=== PATIENT | female | born 1960 | race Caucasian/White ===

== ENCOUNTER 2023-10-06 14:52 | Outpatient (AMB) | payer OTHER, SELFPAY ==
--- NOTE | 2023-10-06 14:54 | A.OFFVIS_ITS ---
Intake Vital Signs 3 10/06/23 15:03 Height 5 ft 0.5 in Weight 185 lb BMI 35.5 BP 130/73 Blood Pressure Location Rt brachial Position Sitting Pulse 81 Pulse Source Pulse Oximeter Pulse Oximetry (%) 100 Oxygen Delivery Method Room Air Intake Visit Reasons: EVALUATION FOR HIP INJECTION Intake Note: Pain today 11/12 Medicaid Plan Compliance Director Required: No Accompanied by: Self / Same As Patient Allergies acetaminophen [From Percocet] Allergy (Unknown, Verified 10/06/23 15:03) Nausea and Vomiting erythromycin base Allergy (Unknown, Verified 10/06/23 15:03) Nausea and Vomiting oxycodone [From Percocet] Allergy (Unknown, Verified 10/06/23 15:03) Nausea and Vomiting Medication List - Last Reconciled 10/06/23 by CELENA Costello calcium carbonate 600 mg PO DAILY celecoxib (Celebrex) 200 mg PO BID losartan 25 mg PO DAILY omega 2-yqc-qte-fish oil 1,000 mg (120 mg-180 mg) (Fish Oil) 1 cap PO DAILY HPI EVALUATION FOR HIP INJECTION 2 HPI0 Details Patient is a pleasant 63 years old presents today for discussion of left intra-articular steroid hip injection. She was referred to our office by [facility] after failing conservative treatment. Denies any recent or past trauma, injury or falls. Patient reports chronic low back pain and worsening left hip pain due to arthritis over the past few years. 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 Patient has completed 8 weeks physical therapy course last year and recently restarted again with minimal improvement so far. Patient reports it has been getting more difficult for her to get out of car, bed, or shower when she has to externally rotate her left hip. Denies previous hip or spine injections or surgery. Left hip pain is rated at 4-5/10 at rest and 7-8/10 with walking/weight bearing and worse lateral in a day and night. Lower back pain is rated at 4/10. Reports she has to manually lift her left thigh at times due to pain. Denies any fever, abdominal pain, unintentional weight loss, foot drop, weakness, bladder or bowel dysfunction, or saddle anesthesia. Location Left hip and groin, minimal low back pain Duration Chronic pain, worsening for >2 years Characteristics of symptom or complaint Aching, dull, sore, heavy, sharp, pinching, hurting Aggravating or associated factors Movements, ROM, walking, weight bearing, prolonged standing Relieving factors Heat therapy, Tylenol, Celebrex-minimal; also tried Meloxicam Treatment PT- recently restarted, previous PT in 2022 for 8 weeks [facility] Medical History (Updated 10/06/23 @ 18:36 by CELENA Costello) Vitamin D deficiency Restless leg syndrome Multinodular goiter HTN (hypertension) Polyarthralgia Chronic low back pain Impingement syndrome, shoulder, left NSAID long-term use Lumbar spondylosis Chronic left hip pain Osteoarthritis of left hip Surgical History (Updated 10/06/23 @ 18:36 by CELENA Costello) History of colonoscopy History of cholecystectomy History of carpal tunnel release of both wrists Social History (Updated 10/06/23 @ 15:05 by Alexandria Belcher) Alcohol intake: current Alcohol intake frequency: holidays/special occasions only Patient Tobacco Use Status: Never used Tobacco Review of Systems Const All systems reviewed & are unremarkable except as noted in HPI and below Physical Exam Vital Signs: Last Vital Signs Pulse 81 10/06/23 15:03 BP 130/73 10/06/23 15:03 Pulse Ox 100 10/06/23 15:03 Oxygen Delivery Method Room Air 10/06/23 15:03 BMI result Body Mass Index 35.5 General: Appears afebrile. Alert and oriented. Mood and affect appropriate. Follows and participates in conversation appropriately. Respiratory effort is unlabored. No cough. Able to transition from sit to stand unassisted. Ambulates with bilaterally normal heel strike and toe off. Back/Spine/Pelvis Other: Lumbar flexion and extension reproduce mild pain. Antalgic gait with limping favoring right side. Can flex forward to 70-75 degrees and extend to 5-10 degrees before experiencing lumbar pain. Demonstrates 5/5 right and 4/5 left due to pain strength of quadriceps bilaterally as well as flexion/dorsiflexion of bilateral feet against resistance. 2+ pedal pulses bilaterally. Facet loading test positive bilaterally. Sima sign positive bilaterally, left>right. Pelvic compression and Stinchfield tests are negative bilaterally. Limited Anatoliy's test reproduces left groin and lateral hip pain, minimal low back pain. Moderate groin pain with I/E left hip rotations, worse with external rotation. Mild TTP to left GTB. Cervical Spine: cervical ROM normal, cervical muscular tenderness and No Cervical spine tenderness Thoracic/Lumbar Spine: thoracic and lumbar spine normal to inspection, No Thoracic/lumbar spine scar(s), Lasegue's sign negative, straight leg raise negative bilaterally, pain with thoraco-lumbar ROM, thoraco-lumbar ROM limited, No thoracic spinal tenderness and lumbar spinal tenderness at L4 and at L5 Pelvis: no buttock tenderness Sacroiliac joints: on the right nontender and on the left tender to palpation Extrem General: Yes capillary refill normal, Yes no clubbing, cyanosis or edema and Yes no calf tenderness Left lower extremity: hip/thigh (Limited ROM due to pain. ) Details: tenderness Location: of the hip Location: anterolaterally and over the great trochanter and crepitus; no swelling, no ecchymosis and no unusual warmth Results Reviewed Results Reviewed: Assessment & Plan Assessment & Plan (1) Osteoarthritis of left hip: Code(s): M16.12 - Unilateral primary osteoarthritis, left hip (2) Chronic left hip pain: Code(s): M25.552 - Pain in left hip; G89.29 - Other chronic pain (3) Lumbar spondylosis: Code(s): M47.816 - Spondylosis without myelopathy or radiculopathy, lumbar region Plan Continue Physical Therapy and Home exercise program, Tylenol, and intermittent Celebrex use as needed. Schedule Left hip intra-articular steroid injection with sedation and fluoroscopy for chronic left hip pain due to advanced OA. Expectations, risks and benefits were reviewed. Patient is aware she will be contacted to schedule this procedure. All questions were answered and the patient is in agreement of plan. Follow-up after injections and sooner as needed. Coding Level of Care Code New Pt Level 4 (74937) Diagnoses Osteoarthritis of left hip M16.12 Chronic left hip pain M25.552; G89.29 Lumbar spondylosis M47.816
[2023-10-06 15:03] VITALS: BP 130/73; PULSE 81; O2SAT 100; BMI 35.5
== END 2023-10-06 15:21 | disposition home or self-care (01) ==
PROVIDERS: PCP Internal Medicine Rheumatology; Visit Provider Nurse Practitioner Family
DX: M16.12 Unilateral primary osteoarthritis, left hip (principal); M25.552 Pain in left hip; G89.29 Other chronic pain; M47.816 Spondylosis without myelopathy or radiculopathy, lumbar region
CPT/HCPCS: 99204

== ENCOUNTER → 2023-10-06 14:52 | Outpatient (BNVA) | payer OTHER, SELFPAY | PROVIDERS: PCP Internal Medicine Rheumatology; Visit Provider Nurse Practitioner Family ==

== ENCOUNTER 2023-11-06 09:43 | Day surgery (SDC) | payer OTHER, SELFPAY ==
[2023-11-04 16:49] VITALS: BMI 35.5
--- NOTE | 2023-11-05 10:05 | HO.ANESPROP2 ---
Documented by User: Roxana Sylvester NP 11/05/23 10:06 HPI - Anesthesia Eval Consult details Narrative: 63yo F for Left Intra-Articular Hip Steroid Injection PMFSH Active Problems Active Problems: All Active Problems Lumbar spondylosis (Acute) Chronic left hip pain (Acute) Osteoarthritis of left hip (Acute) Past Medical History Medical History (Updated 11/06/23 @ 10:43 by Radha Reynolds RN) delivery delivered Vitamin D deficiency Restless leg syndrome Multinodular goiter HTN (hypertension) Polyarthralgia Chronic low back pain Impingement syndrome, shoulder, left NSAID long-term use Lumbar spondylosis Chronic left hip pain Osteoarthritis of left hip Surgical History Surgical History (Updated 10/06/23 @ 18:36 by CELENA Costello) History of colonoscopy History of cholecystectomy History of carpal tunnel release of both wrists Social History Social History (Updated 10/06/23 @ 15:05 by Alexandria Belcher) Alcohol intake: current Alcohol intake frequency: holidays/special occasions only Patient Tobacco Use Status: Never used Tobacco Use of substances other than those prescribed or required for medical reasons: No Are you DNR?: No Advance Directives: No Advance Directives Information Provided: Yes Meds Allergies Allergy/AdvReac Type Severity Reaction Status Date / Time acetaminophen [From Percocet] AdvReac Unknown Nausea and Verified 11/06/23 10:42 Vomiting erythromycin base AdvReac Unknown Nausea and Verified 11/06/23 10:42 Vomiting oxycodone [From Percocet] AdvReac Unknown Nausea and Verified 11/06/23 10:42 Vomiting Home Medications ?Medication ?Instructions ?Recorded ?Confirmed ?Last Taken ?Type celecoxib 200 mg capsule (Celebrex) 200 mg PO BID 10/06/23 11/06/23 11/04/23 History losartan 25 mg tablet 25 mg PO DAILY 10/06/23 11/06/23 11/06/23 History omega 6-gmr-mpe-fish oil 1,000 mg 1 cap PO DAILY 10/06/23 11/06/23 11/04/23 History (120 mg-180 mg) capsule (Fish Oil) metoprolol succinate 25 mg 25 mg PO DAILY 11/06/23 11/06/23 11/06/23 History tablet,extended release 24 hr Exam Height,Weight and Vital Signs: Height 5 ft 0.5 in Weight 83.915 kg Assessment and Plan Assessment Anesthesia Assessment: Chart Reviewed Documented by User: Marina John MD 11/06/23 14:16 [facility] Past Medical History Medical History (Updated 11/06/23 @ 10:43 by Radha Reynolds RN) delivery delivered Vitamin D deficiency Restless leg syndrome Multinodular goiter HTN (hypertension) Polyarthralgia Chronic low back pain Impingement syndrome, shoulder, left NSAID long-term use Lumbar spondylosis Chronic left hip pain Osteoarthritis of left hip Family History Family history of problems with anesthesia: No Surgical History Surgical History (Updated 10/06/23 @ 18:36 by CELENA Costello) History of colonoscopy History of cholecystectomy History of carpal tunnel release of both wrists History of Problems with Anesthesia: No Social History Social History (Updated 10/06/23 @ 15:05 by Alexandria Belcher) Alcohol intake: current Alcohol intake frequency: holidays/special occasions only Patient Tobacco Use Status: Never used Tobacco Use of substances other than those prescribed or required for medical reasons: No Are you DNR?: No Advance Directives: No Advance Directives Information Provided: Yes Meds Allergies Allergy/AdvReac Type Severity Reaction Status Date / Time acetaminophen [From Percocet] AdvReac Unknown Nausea and Verified 11/06/23 10:42 Vomiting erythromycin base AdvReac Unknown Nausea and Verified 11/06/23 10:42 Vomiting oxycodone [From Percocet] AdvReac Unknown Nausea and Verified 11/06/23 10:42 Vomiting Home Medications ?Medication ?Instructions ?Recorded ?Confirmed ?Last Taken ?Type celecoxib 200 mg capsule (Celebrex) 200 mg PO BID 10/06/23 11/06/23 11/04/23 History losartan 25 mg tablet 25 mg PO DAILY 10/06/23 11/06/23 11/06/23 History omega 0-xth-ana-fish oil 1,000 mg 1 cap PO DAILY 10/06/23 11/06/23 11/04/23 History (120 mg-180 mg) capsule (Fish Oil) metoprolol succinate 25 mg 25 mg PO DAILY 11/06/23 11/06/23 11/06/23 History tablet,extended release 24 hr Exam Airway Mallampati Class: II TM Dist: >3cm Neck ROM: Full Heart: rrr Lungs: cta Assessment and Plan Assessment Anesthesia Assessment: Anesthesia Plan Discussed Final Anesthetic Review Family History of Problems with Anesthesia: No History of Problems with Anesthesia: No NPO: Yes ASA Class: II Final Preanesthetic Review: No Changes in Pt Med Stat, Meds/Allgs Chart Reviewed and Consent Obtained/Reviewed Patient Risk: Low Procedure Risk: Low Anesthetic Plan Anesthetic Plan: MAC: Disposition: Standard PACU
--- NOTE | ~2023-11-06 | FL_ITS ---
EXAMINATION: XR FLUOROSCOPY WITH IMAGES CLINICAL INFORMATION: Intra-articular hip steroid injection COMPARISON: None available. TECHNIQUE: Fluoroscopy Supervised By: Dr. Zamudio. Fluoroscopy Time: 0.2 minutes. Cumulative Dose: 6.07 mGy. DAP: 1.61 Gycm2. Images: 3. FINDINGS: 3 images demonstrate a needle projected over the left hip joint. Please see Dr. Zamudio's procedure note for full details. FL/FL guidance in OR IMPRESSION: Fluoroscopic guidance was provided for pain management.
[2023-11-06 10:44] VITALS: BMI 35.6
[2023-11-06 10:50] VITALS: BP 152/87; PULSE 72; RESP 16; TEMP 37.1; O2SAT 97
[2023-11-06] MEDS: Lactated Ringers 1,000 ML 100 ML IVCONT (11:05)
--- NOTE | 2023-11-06 15:24 | MHC.SHP ---
Pre-Procedural Eval Section A - 24 Hr Update-Section A only Date of Service: 11/06/23 Changes since office visit: Yes Patient answered all questions The patient has been examined within 24 hours of the surgical procedure. The History & Physical has been completed within 30 days and I have reviewed it.: No Section B - Complete if H&P > 30 days Chief Complaint: Unilateral primary osteoarthritis, left hip Details of Present Illness: as above Relevant Family History (Specify if Yes): No Relevant Social History: None Present Medications: None Medical History: No relevant PMH History of Previous Operations: No relevant previous surgery Allergies: Allergies Allergy/AdvReac Type Severity Reaction Status Date / Time acetaminophen [From Percocet] AdvReac Unknown Nausea and Verified 11/06/23 10:42 Vomiting erythromycin base AdvReac Unknown Nausea and Verified 11/06/23 10:42 Vomiting oxycodone [From Percocet] AdvReac Unknown Nausea and Verified 11/06/23 10:42 Vomiting Review of Systems Sugical H&P ROS: Negative: Cardiovascular, Respiratory, Neurological, Psychiatric, Hem-Onc, Allergic/Immunologic, Gastrointestinal, Genitourinary, Integumentary, Endocrine and Eyes/Ears/Nose/Throat and Yes, Specify: Constitution (0besity) and Musculoskeletal (left hip arthritis, spinal spondylosis.) Exam Surgical H&P Exam: Normal: HEENT, Normal: Heart, Normal: Lungs, Normal: Extremities, Normal: Abdomen, Normal: Skin and Normal: Neurological Plan Diagnosis/Plan: Unchanged I have reviewed the history and physical and performed a pertinent physical examination on my patient. No changes have occurred unless specified. Time Spent With Patient Time: Total time managing care of this patient today ____ minutes.
[2023-11-06 16:19] VITALS: BP 110/50; PULSE 66; RESP 16; TEMP 36.4; O2SAT 93
--- NOTE | 2023-11-06 16:19 | P.BOP_ITS ---
Brief Operative Note Date of Service: 11/06/23 Pre-op diagnosis: Left hip osteoarthritis Post-op diagnosis: same Procedure: Left hip steroid injection Implants: None Surgeon: Dev Zamudio MD Anesthesia: MAC Was an Battery Container Tester Aluminum used for this Procedure?: No Estimated blood loss (mL): 0 Condition: stable Disposition: PACU
--- NOTE | 2023-11-06 16:20 | P.OP_ITS ---
Operative Note Operative Note Date of Service: 11/06/23 Narrative: Left intra-articular hip joint steroid injection. Informed consent was explained to the patient. All questions were explained and answered. The patient was taken inside of the operating room where she was positioned on the right lateral decubitus position on the operating table.. ASA monitors were applied and the patient was deeply sedated. Time-out was performed delineating patient's name and date of , correct site, side, the nature of the procedure, patient's allergy, preoperative antibiotic if needed, need for VT prophylaxis.. All operating room staff was participating in OR time-out procedure. Non dependent left hip area of the patient was prepped with ChloraPrep and draped with sterile towels. C-arm was brought over the operating field and picture of left and right lateral views of the bilateral hip joints were delineated on the screen. The smaller joint silhouette was chosen as the target. Projection of the left trochanter to the skin was chosen as the initial needle insertion point. After that the skin and subcutaneous tissues was anesthetized with 2% lidocaine 2.5 mL. 22 gauge 5 in long needle was inserted through the skin and started to advance to the joint space under in termittent lateral and anterior posterior views. When needle entered the capsule of the joint small amount of the contrast was injected delineating intra-articular space. After that treatment solution containing ropivacaine 0.5% 4 mls and 40 mg of Kenalog was injected into the joint. The needle was withdrawn sterile dressing was applied.The patient tolerated procedure well, She went to PACU where recovered uneventfully.
[2023-11-06 16:34] VITALS: BP 124/71; PULSE 60; RESP 16; TEMP 36.9; O2SAT 97
== END 2023-11-06 16:54 | disposition home or self-care (01) ==
PROVIDERS: PCP Student in an Organized Health Care Education/Training Program; Visit Provider Anesthesiology
PROC: (CPT 20610; principal; 2023-11-06 13:30)
DX: M16.12 Unilateral primary osteoarthritis, left hip (principal); M25.552 Pain in left hip; G89.29 Other chronic pain; M54.50 Low back pain, unspecified; M47.816 Spondylosis without myelopathy or radiculopathy, lumbar region; Z79.899 Other long term (current) drug therapy; I10 Essential (primary) hypertension; E55.9 Vitamin D deficiency, unspecified; G25.81 Restless legs syndrome; Z79.1 Long term (current) use of non-steroidal anti-inflammatories (NSAID); Z88.5 Allergy status to narcotic agent; Z88.1 Allergy status to other antibiotic agents
CPT/HCPCS: 20610; J2250; J2704; J2795; J3010; J3301; Q9967

== ENCOUNTER → 2023-11-06 09:43 | Outpatient (BNV) | payer OTHER, SELFPAY | PROVIDERS: PCP Student in an Organized Health Care Education/Training Program; Visit Provider Anesthesiology | DX: M25.552 Pain in left hip (principal) | CPT/HCPCS: 20610; 77002 ==

== ENCOUNTER 2023-12-11 14:50 | Outpatient (AMB) | payer OTHER, SELFPAY ==
--- NOTE | 2023-12-11 14:51 | MHC.OFFVIS ---
Vital Signs 12/11/23 14:53 Height 5 ft 0.5 in Weight 185 lb BMI 35.5 BP 137/67 Blood Pressure Location Rt brachial Position Sitting Pulse 95 Pulse Source Pulse Oximeter Pulse Oximetry (%) 99 Oxygen Delivery Method Room Air Intake Visit Reasons: S/p (L) Hip Intraarticular Hip Inj 11/06/23 Intake Note: Pain today 07/15 Public Policy Associate Required: No Accompanied by: Self / Same As Patient Allergies acetaminophen [From Percocet] Adverse Reaction (Unknown, Verified 12/11/23 15:01) Nausea and Vomiting erythromycin base Adverse Reaction (Unknown, Verified 12/11/23 15:01) Nausea and Vomiting oxycodone [From Percocet] Adverse Reaction (Unknown, Verified 12/11/23 15:01) Nausea and Vomiting HPI Comments Details: Patient presents today to assess response to Left Hip Intra-articular steroid injection on 11/06/[address] Zamudio. Patient reports 80-90% pain relief since procedure with significant improvement in her daily activities, mobility, functioning and sleep. She continues to experience left sided lateral hip that originates from left buttock and into left thigh laterally and at times lateral yung. Pain is aggravated with prolonged walking or changing positions. Most recent xray showed mild sacroiliitis bilaterally, worse on the left. Patient completed physical therapy and continues home exercise program for low back pain, sacroiliac joint and hip pain this partial relief. Denies any numbness or tingling, weakness, bladder or bowel dysfunction, or saddle anesthesia. Past Procedures: 11/06/23: Left Hip Intra-articular steroid [id number] ongoing pain relief PRIOR: Patient is a pleasant 63 years old presents today for discussion of left intra-articular steroid hip injection. She was referred to our office by [facility] after failing conservative treatment. Denies any recent or past trauma, injury or falls. Patient reports chronic low back pain and worsening left hip pain due to arthritis over the past few years. 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 Patient has completed 8 weeks physical therapy course last year and recently restarted again with minimal improvement so far. Patient reports it has been getting more difficult for her to get out of car, bed, or shower when she has to externally rotate her left hip. Denies previous hip or spine injections or surgery. Left hip pain is rated at 4-5/10 at rest and 7-8/10 with walking/weight bearing and worse lateral in a day and night. Lower back pain is rated at 4/10. Reports she has to manually lift her left thigh at times due to pain. Denies any fever, abdominal pain, unintentional weight loss, foot drop, weakness, bladder or bowel dysfunction, or saddle anesthesia. Location Left hip and groin, minimal low back pain Duration Chronic pain, worsening for >2 years Characteristics of symptom or complaint Aching, dull, sore, heavy, sharp, pinching, hurting Aggravating or associated factors Movements, ROM, walking, weight bearing, prolonged standing Relieving factors Heat therapy, Tylenol, Celebrex-minimal; also tried Meloxicam Treatment PT- recently restarted, previous PT in 2022 for 8 weeks [facility] Medical History delivery delivered Vitamin D deficiency Restless leg syndrome Multinodular goiter HTN (hypertension) Polyarthralgia Chronic low back pain Impingement syndrome, shoulder, left NSAID long-term use Lumbar spondylosis Chronic left hip pain Osteoarthritis of left hip Surgical History History of colonoscopy History of cholecystectomy History of carpal tunnel release of both wrists Social History Alcohol intake: current Alcohol intake frequency: holidays/special occasions only Patient Tobacco Use Status: Never used Tobacco Review of Systems Const All systems reviewed & are unremarkable except as noted in HPI and below Physical Exam Vital Signs: Last Vital Signs Pulse 95 12/11/23 14:53 BP 137/67 12/11/23 14:53 Pulse Ox 99 12/11/23 14:53 Oxygen Delivery Method Room Air 12/11/23 14:53 BMI result Body Mass Index 35.5 General: Appears afebrile. Alert and oriented. Mood and affect appropriate. Follows and participates in conversation appropriately. Respiratory effort is unlabored. No cough. Able to transition from sit to stand unassisted. Ambulates with bilaterally normal heel strike and toe off. General: Yes no CVA tenderness Back/Spine/Pelvis Other: Lumbar flexion and extension reproduce mild pain. Facet loading test positive bilaterally. Sima sign positive bilaterally, left>right. Pelvic compression, Anatoliy's test, Stinchfield tests are positive bilaterally. Mild groin pain with I/E left hip rotations. Mild TTP to left GTB. Back: no CVA tenderness Cervical Spine: cervical ROM normal, cervical muscular tenderness and No Cervical spine tenderness Thoracic/Lumbar Spine: thoracic and lumbar spine normal to inspection, No Thoracic/lumbar spine scar(s), Lasegue's sign negative, straight leg raise negative bilaterally, pain with thoraco-lumbar ROM, thoraco-lumbar ROM limited, No thoracic spinal tenderness and lumbar spinal tenderness at L4 and at L5 Pelvis: no buttock tenderness Sacroiliac joints: bilaterally tender to palpation Extrem General: Yes capillary refill normal, Yes no clubbing, cyanosis or edema and Yes no calf tenderness Left lower extremity: hip/thigh (Limited ROM due to pain. ) Details: tenderness Location: of the hip Location: anterolaterally and over the great trochanter and crepitus; no swelling, no ecchymosis and no unusual warmth Results Reviewed Results Reviewed: Assessment & Plan Assessment & Plan (1) Osteoarthritis of left hip: Code(s): M16.12 - Unilateral primary osteoarthritis, left hip Category: Medical (2) Chronic left hip pain: Code(s): M25.552 - Pain in left hip; G89.29 - Other chronic pain Category: Medical (3) Lumbar spondylosis: Code(s): M47.816 - Spondylosis without myelopathy or radiculopathy, lumbar region Category: Medical (4) Sacroiliac joint pain: Code(s): M53.3 - Sacrococcygeal disorders, not elsewhere classified Category: Medical Plan Patient is status post left hip intra-articular steroid injection with good results, with a functioning, better mobility and sleep. She presents is left-sided sacroiliac joint minimal pain today which she noticed more aggravated this prolonged walking or changing position. We discussed diagnostic vs therapeutic sacroiliac joint injection, Curonix peripheral nerve stimulation trial and implant, SI joint fusion and RFA procedures. Patient declined any implants but will consider therapeutic injection or RFA in the future. She continues with home exercise program. All questions were answered and the patient is in agreement of plan. Follow-up as needed. Coding Level of Care Code Est Pt Level 3 (47505) Diagnoses Osteoarthritis of left hip M16.12 Chronic left hip pain M25.552; G89.29 Lumbar spondylosis M47.816 Sacroiliac joint pain M53.3
[2023-12-11 14:53] VITALS: BP 137/67; PULSE 95; O2SAT 99; BMI 35.5
== END 2023-12-11 15:16 | disposition home or self-care (01) ==
PROVIDERS: PCP Internal Medicine Rheumatology; Visit Provider Nurse Practitioner Family
DX: M16.12 Unilateral primary osteoarthritis, left hip (principal); M25.552 Pain in left hip; G89.29 Other chronic pain; M47.816 Spondylosis without myelopathy or radiculopathy, lumbar region; M53.3 Sacrococcygeal disorders, not elsewhere classified
CPT/HCPCS: 99213

== ENCOUNTER → 2023-12-11 14:50 | Outpatient (BNVA) | payer OTHER, SELFPAY | PROVIDERS: PCP Internal Medicine Rheumatology; Visit Provider Nurse Practitioner Family ==

== ENCOUNTER 2024-05-16 14:46 | Outpatient (AMB) | payer OTHER, SELFPAY ==
--- NOTE | 2024-05-16 14:49 | A.OFFVIS_ITS ---
Vital Signs 3 05/16/24 14:54 05/16/24 14:55 Height 5 ft 0.5 in Weight 187 lb BMI 35.9 BP 139/103 H 138/83 Blood Pressure Location Rt brachial Lt brachial Position Sitting Sitting Pulse 83 Pulse Source Pulse Oximeter Pulse Oximetry (%) 98 Oxygen Delivery Method Room Air Comment bp recheck Intake Visit Reasons: Hip pain Intake Note: Pain today 11/12 Guide Travel Required: No Accompanied by: Self / Same As Patient Allergies acetaminophen [From Percocet] Adverse Reaction (Unknown, Verified 05/16/24 14:55) Nausea and Vomiting erythromycin base Adverse Reaction (Unknown, Verified 05/16/24 14:55) Nausea and Vomiting oxycodone [From Percocet] Adverse Reaction (Unknown, Verified 05/16/24 14:55) Nausea and Vomiting HPI Comments Details: Patient presents today for follow up for left hip pain and left sided radiculopathy pain. Denies any recent trauma, injury or falls. She reports worsening left groin pain worse than left hip pain and back pain with radiation into her left sacral and gluteal areas and into LLE posteriorly with associated numbness and tingling. Reports chronic restless leg syndrome and burning and parasthesia sensations in her bilateral lower extremities, worse at night. Patient reports increased difficulty getting out of bed or out of her car due to back, hip and groin pain. Pain is easily aggravated with activity, walking, weight bearing, changing positions or sleep. She takes Celebrex daily. Denies any numbness or tingling, weakness, bladder or bowel dysfunction, or saddle anesthesia. Patient reports she recently completed Bone scan and has started calcium with vitamin D supplement for osteopenia. Past Procedures: 11/06/23: Left Hip Intra-articular steroid [id number] ongoing pain relief PRIOR: Patient is a pleasant 63 years old presents today for discussion of left intra- articular steroid hip injection. She was referred to our office by [facility] after failing conservative treatment. Denies any recent or past trauma, injury or falls. Patient reports chronic low back pain and worsening left hip pain due to arthritis over the past few years. 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 Patient has completed 8 weeks physical therapy course last year and recently restarted again with minimal improvement so far. Patient reports it has been getting more difficult for her to get out of car, bed, or shower when she has to externally rotate her left hip. Denies previous hip or spine injections or surgery. Left hip pain is rated at 4-5/10 at rest and 7-8/10 with walking/weight bearing and worse lateral in a day and night. Lower back pain is rated at 4/10. Reports she has to manually lift her left thigh at times due to pain. Denies any fever, abdominal pain, unintentional weight loss, foot drop, weakness, bladder or bowel dysfunction, or saddle anesthesia. Location Left hip and groin, minimal low back pain Duration Chronic pain, worsening for >2 years Characteristics of symptom or complaint Aching, dull, sore, heavy, sharp, pinching, hurting Aggravating or associated factors Movements, ROM, walking, weight bearing, prolonged standing Relieving factors Heat therapy, Tylenol, Celebrex-minimal; also tried Meloxicam Treatment PT- recently restarted, previous PT in 2022 for 8 weeks [facility] Medical History delivery delivered Vitamin D deficiency Restless leg syndrome Multinodular goiter HTN (hypertension) Polyarthralgia Chronic low back pain Impingement syndrome, shoulder, left NSAID long-term use Lumbar spondylosis Chronic left hip pain Osteoarthritis of left hip Surgical History History of colonoscopy History of cholecystectomy History of carpal tunnel release of both wrists Social History Alcohol intake: current Alcohol intake frequency: holidays/special occasions only Patient Tobacco Use Status: Never used Tobacco Review of Systems Const All systems reviewed & are unremarkable except as noted in HPI and below Physical Exam Vital Signs: Last Vital Signs Pulse 83 05/16/24 14:54 BP 138/83 05/16/24 14:55 Pulse Ox 98 05/16/24 14:54 Oxygen Delivery Method Room Air 05/16/24 14:54 BMI result Body Mass Index 35.9 General: Appears afebrile. Alert and oriented. Mood and affect appropriate. Follows and participates in conversation appropriately. Respiratory effort is unlabored. No cough. Able to transition from sit to stand unassisted. Ambulates with bilaterally normal heel strike and toe off, difficulty ambulating on the left due to pain. General: Yes no CVA tenderness Back/Spine/Pelvis Other: Lumbar flexion and extension reproduce moderate pain. Facet loading test positive bilaterally. Sima sign positive bilaterally, left>right. Pelvic compression, Anatoliy's test, Stinchfield tests are positive bilaterally, worse on the left. SIDDHARTH/Anatoliy's test reproduces left groin pain. Moderate groin pain with I/E left hip rotations. Mild TTP to left GTB. Valsalva maneuver is negative. Back: no CVA tenderness Cervical Spine: cervical ROM normal, cervical muscular tenderness and No Cervical spine tenderness Thoracic/Lumbar Spine: thoracic and lumbar spine normal to inspection, No Thoracic/lumbar spine scar(s), Lasegue's sign positive on the left and diffuse, pain with thoraco-lumbar ROM, paraspinal muscle tenderness, thoraco-lumbar ROM limited, No thoracic spinal tenderness and lumbar spinal tenderness (L4-S1) Pelvis: buttock tenderness on the left and sciatic notch tenderness on the left Sacroiliac joints: bilaterally (left>right) tender to palpation Extrem General: Yes capillary refill normal, Yes no clubbing, cyanosis or edema and Yes no calf tenderness Left lower extremity: hip/thigh (Limited ROM due to pain. ) Details: tenderness Location: of the hip Location: anterolaterally and over the great trochanter and crepitus; no swelling, no ecchymosis and no unusual warmth Results Reviewed Results Reviewed: Assessment & Plan Assessment & Plan (1) Osteoarthritis of left hip: Code(s): M16.12 - Unilateral primary osteoarthritis, left hip Category: Medical (2) Chronic left hip pain: Code(s): M25.552 - Pain in left hip; G89.29 - Other chronic pain Category: Medical (3) Left groin pain: Code(s): R10.32 - Left lower quadrant pain Category: Medical (4) Lumbar spondylosis: Code(s): M47.816 - Spondylosis without myelopathy or radiculopathy, lumbar region Category: Medical (5) Lumbar radiculopathy: Code(s): M54.16 - Radiculopathy, lumbar region Category: Medical (6) Osteopenia: Code(s): M85.80 - Other specified disorders of bone density and structure, unspecified site Category: Medical (7) Sacroiliac joint pain: Code(s): M53.3 - Sacrococcygeal disorders, not elsewhere classified Category: Medical Plan MRI of the lumbar spine and left hip to assess for neural integrity and compression and to rule out labral tear. Will request lumbar spine xray imaging from [facility]. Patient's symptoms overlap with axial low back pain, SIJ, left hip pathology and radiculopathy. Script provided for gabapentin. Side effects and precautions discussed with patient. All questions and concerns have been answered and patient agreed with the treatment plan. Follow up for MRI results and sooner as needed. Orders: Orders 2 MR hip LT wo/w con Today G89.29 - Other chronic pain, M16.12 - Unilateral primary osteoarthritis, left hip, M25.552 - Pain in left hip, R10.32 - Left lower quadrant pain MR lumbar spine wo con Today M47.816 - Spondylosis without myelopathy or radiculopathy, lumbar region, M54.16 - Radiculopathy, lumbar region Medications: New 2 gabapentin 300 mg PO BEDTIME 30 days 30 caps 0RF pain G89.29 - Other chronic pain, M25.552 - Pain in left hip, M54.16 - Radiculopathy, lumbar region Coding Level of Care Code Est Pt Level 4 (89975) Complex EM visit Add On G2211 Diagnoses Osteoarthritis of left hip M16.12 Chronic left hip pain M25.552; G89.29 Left groin pain R10.32 Lumbar spondylosis M47.816 Lumbar radiculopathy M54.16 Osteopenia M85.80 Sacroiliac joint pain M53.3
[2024-05-16 14:54] VITALS: BP 139/103; PULSE 83; O2SAT 98; BMI 35.9
[2024-05-16 14:55] VITALS: BP 138/83
== END 2024-05-16 15:13 | disposition home or self-care (01) ==
PROVIDERS: PCP Internal Medicine Rheumatology; Visit Provider Nurse Practitioner Family
DX: M16.12 Unilateral primary osteoarthritis, left hip (principal); M25.552 Pain in left hip; G89.29 Other chronic pain; R10.32 Left lower quadrant pain; M47.816 Spondylosis without myelopathy or radiculopathy, lumbar region; M54.16 Radiculopathy, lumbar region; M85.80 Other specified disorders of bone density and structure, unspecified site; M53.3 Sacrococcygeal disorders, not elsewhere classified
CPT/HCPCS: 99214; G2211

== ENCOUNTER → 2024-05-16 14:46 | Outpatient (BNVA) | payer OTHER, SELFPAY | PROVIDERS: PCP Internal Medicine Rheumatology; Visit Provider Nurse Practitioner Family ==